=== PATIENT | female | born 1945 | race Caucasian/White ===

== ENCOUNTER 2016-08-16 13:12 | Observation (INO) | payer OTHER ==
[~2016-08-16 13:12] MED LIST: BUPIVACAINE 0.25% 30 ML SDV ONE; THROMBIN (RECOMBINANT) 5,000 UNIT VIAL TP ONE
[2016-08-16] MEDS ORDERED: LIDOCAINE 1% 5 ML SDV ONE (13:34)
[2016-08-16] MEDS ORDERED: CEFAZOLIN 2 GM/DEXTROSE/100 ML BAG IV ONE (13:56)
[2016-08-16] MEDS ORDERED: LIDOCAINE 1% 5 ML SDV ID PRN (14:13)
[2016-08-16] MEDS ORDERED: LR 1,000 ML IV ONE (14:13)
[2016-08-16 14:27] LABS: CALCIUM 10.4 ng/dL (8.5-10.4); CREATININE 0.7 mg/dL (0.6-1.0)
[2016-08-16] MEDS ORDERED: ceFAZolin 2 GM/DEXTROSE 100 ML IV ONE (14:30)
[2016-08-16] MEDS ORDERED: MIDAZOLAM 2 MG/2 ML VIAL ONE (14:44)
[2016-08-16] MEDS ORDERED: fentaNYL 250 MCG/5 ML INJ ONE (14:53)
[2016-08-16] MEDS ORDERED: PROPOFOL 200 MG/20 ML VIAL ONE ×2 (14:53→16:59)
[2016-08-16] MEDS ORDERED: PROPOFOL/EMULSION 500 MG/50 ML BOTTLE IV ONE (16:04)
[2016-08-16] MEDS ORDERED: SKIN ADHESIVE (DERMABOND) 1 EACH TP ONE (16:33)
[2016-08-16] MEDS ORDERED: LIDOCAINE 2% 5 ML SDV ONE (16:33)
[2016-08-16] MEDS ORDERED: ROCURONIUM 50 MG/5 ML VIAL ONE (16:33)
[2016-08-16] MEDS ORDERED: GLYCOPYRROLATE 0.2 MG/1 ML VIAL ONE ×2 (17:01)
[2016-08-16] MEDS ORDERED: NEOSTIGMINE METHYLSULFATE 5 MG/5 ML SYR ONE (17:01)
[2016-08-16] MEDS ORDERED: HYDROCODONE/APAP 5/325 TAB PO PRN (17:25)
[2016-08-16] MEDS ORDERED: ONDANSETRON 4 MG/2 ML VIAL IVP PRN (17:25)
--- NOTE | 2016-08-16 17:40 | POSTOPPROG ---
Post Op Note Date of Operation: 08/16/16 Surgeon: Johnathan Ivan (, FACS) Hot Air Furnace Installer Repairer: Renata Shelton MD Anesthesiologist: Maryanne Ledezma MD Anesthesia: GET(General Endotracheal) (NIMS) Pre-op Diagnosis: hyperparathyroidism Post-op Diagnosis: same Procedure: parathyroidectomy Findings: 1000mg adenoma left superior Inf/Abcess present in the surg proc area at time of surgery?: No
[2016-08-16] MEDS: CALCITRIOL 0.25 MCG CAP PO SCH (18:34)
[2016-08-16] MEDS: CALCIUM CARBONATE 500 MG CHEWABLE TAB PO SCH (20:44)
--- NOTE | 2016-08-17 03:40 | GOP ---
[f rep st] OPERATIVE REPORT DATE OF OPERATION: 08/16/2016 SURGEON: Johnathan Ivan MD, FACS ELECTRONIC SPECIALIST: Renata Shelton MD. PREOPERATIVE DIAGNOSIS: Hyperparathyroidism. POSTOPERATIVE DIAGNOSIS: Hyperparathyroidism. PROCEDURE PERFORMED: Parathyroidectomy. FINDINGS: Left superior pole parathyroid adenoma weighing 1000 mg, submitted for permanent section. Intraoperative PTH levels dropping from a preoperative baseline of 92, to 34 at 10 minutes and 26 at 20 minutes. ESTIMATED BLOOD LOSS: 10 cc. DESCRIPTION OF PROCEDURE: After informed consent was obtained, the patient was brought to the operating room, placed under general anesthesia using a NIMS tube. The neck was prepped and draped in the usual fashion. Before proceeding , a time-out and identification of the patient was performed. 0.25% Marcaine and 1% lidocaine were used to infiltrate the planned incision site. A transverse incision was made between the heads of the sternocleidomastoid muscle, transversely oriented into a natural skin crease. Dissection was carried out through the subcutaneous tissues and platysma muscle. This was incised transversely. Flaps were elevated cephalad deep to the platysma muscle, to the cricothyroid membrane, and inferiorly to the suprasternal notch. The strap muscles were mobilized in the midline and retracted to the left, where the preoperative imaging indicated the likely presence of an adenoma. The thyroid gland was rotated medially with gentle blunt traction, using a small peanut. The inferior parathyroid gland was identified almost immediately, and appeared normal in size. Posterior to the middle thyroid vein was a 2nd parathyroid that appeared to represent an adenoma. The recurrent laryngeal nerve had not been identified at this point, but was likely coursing posteriorly to the parathyroid gland in question. This was slowly and carefully dissected from an anterior approach. The middle thyroid vein was divided with the Harmonic Scalpel. The parathyroid was bluntly dissected and retracted anteriorly away from the ligament of Virk, and likely course of the recurrent laryngeal nerve. As it was teased from the surrounding fibrous fatty tissue of the neck, the remaining blood supply was taken down with the Harmonic Scalpel, and the gland delivered from the field. The remainder of the thyroid gland appeared unremarkable. It was returned to its anatomic position over a small patch of Surgicel. We subsequently waited for intraoperative rapid PTH assays, drawn at approximately 10 and 20 minutes. These ultimately showed an appropriate drop in the PTH level from 92 to 34, and subsequently to 26. Hemostasis appeared secure within the neck. The platysma muscle was defatted anteriorly and approximated with interrupted 3-0 Vicryl suture. Subcutaneous tissues were closed with 3-0 Vicryl suture. The skin was closed with a 4-0 Monocryl suture in a subcuticular fashion. Mastisol and Steri -Strips were applied. Needle, sponge, and instrument count correct. COMPLICATIONS: None. /[id number]/MODL MTDD
[2016-08-17] MEDS: CALCIUM CARBONATE 500 MG CHEWABLE TAB PO SCH (07:58)
[2016-08-17] MEDS: CALCITRIOL 0.25 MCG CAP PO SCH (07:58)
[2016-08-17] MEDS ORDERED: ENOXAPARIN 40 MG/0.4 ML SYR SC SCH (09:00)
--- NOTE | 2016-08-17 09:11 | PDDCSUM ---
Discharge Summary Discharge Summary: DOA: 08/16/16 DOD: 08/17/16 DC Diagnosis: 1. Hyperparathyroidism 2. post op hypoxemia 3. COPD-mild 4. former smoker (quit 3 years ago) Procedures: 06/16 Parathyroidectomy DC meds: Calcitriol .25 mcg po qDay #30 CaCarbonate 500 mg po TID Home O2 2 lpm via MD Hospital course: Patient was admitted for parathyroidectomy. Following surgery she was admitted for observation and had very little post op pain. Her Ca++ levels declined slowly from her baseline and she required supplemental O2 after surgery for sats dropping into the 70s on RA. At time of discharge her lungs were clear without wheezing and her incision was healing without signs of infection or bleeding. Her voice was normal post operatively and she did not require narcotic pain relievers after leaving the PACU. She will follow up in my office next week and with her PCP Dr. Itzel Hayward. Ca++ morning of discharge was 9.9 mg/dl Her pre-op symptoms attributed to PMR resolved almost immediately after surgery. Zelalem Ivan MD, FACS
[2016-08-17 11:42] VITALS: BP 101/67; PULSE 68; RESP 22; TEMP 97.9; O2SAT 96
== END 2016-08-17 13:44 | disposition home or self-care (01) ==
LOC: F3E 13:12
PROVIDERS: ADMIT Surgery; ATTEND Surgery
PROC: 0GBR0ZZ Excision of Parathyroid Gland, Open Approach (ICD-10-PCS; principal; 2016-08-16 14:30)
DX: E21.1 Secondary hyperparathyroidism, not elsewhere classified (principal); D35.1 Benign neoplasm of parathyroid gland; J95.89 Other postprocedural complications and disorders of respiratory system, not elsewhere classified; R09.02 Hypoxemia; J44.9 Chronic obstructive pulmonary disease, unspecified; Z87.891 Personal history of nicotine dependence; M35.3 Polymyalgia rheumatica; M81.0 Age-related osteoporosis without current pathological fracture
CPT/HCPCS: 60500; J0690; J1650; J2250; J2704; J2710; J3010

== ENCOUNTER → 2016-12-03 | Outpatient (CLI) | payer OTHER | LOC: BMCIMAGING 14:50 | PROVIDERS: ATTEND Physician Assistant | DX: M25.562 Pain in left knee (principal); M17.12 Unilateral primary osteoarthritis, left knee ==

== ENCOUNTER 2017-04-27 08:07 | Emergency (ER) | payer OTHER ==
[2017-04-27 08:18] VITALS: BP 143/82; PULSE 73; RESP 18; TEMP 98.2; O2SAT 95
--- NOTE | 2017-04-27 08:28 | EDPHY ---
H & P Time Seen by Provider: 04/27/17 08:17 HPI/ROS: CHIEF COMPLAINT: "I am not feeling well" HISTORY OF PRESENT ILLNESS: Patient is a 7-year-old female with history of polymyalgia rheumatica who presents emergency department with multiple cold type complaints. Patient states that last Friday and Friday she had an episode of nausea and vomiting. Her vomiting has resolved. Since that time she has had malaise. She feels fatigued. She has a mild headache. She denies sore throat. She has no sinus pain. No neck stiffness or photophobia. She denies any chest pain. No shortness of breath. No cough. No current abdominal pain. No dysuria, frequency or hematuria. She has had no rash. Patient states she has had influenza this year. REVIEW OF SYSTEMS: My complete review of systems is negative except as mentioned in the HPI. Past Medical/Surgical History: Includes polymyalgia rheumatica Past surgical history: Parathyroid Social history: Patient quit smoking Smoking Status: Former smoker Physical Exam: Vitals noted. Afebrile GENERAL: Well-appearing, in no acute distress, alert. HEENT: Eyes normal to inspection, normal pharynx, no signs of dehydration. Normal NECK: No thyromegaly, no lymphadenopathy, supple. No meningismus. RESPIRATORY: Clear to auscultation bilaterally, no rales, rhonchi or wheezing. Normal CVS: Regular rate and rhythm, no rubs, murmurs, or gallops. ABDOMEN: Soft, nontender, nondistended, no organomegaly. Benign BACK: Normal to inspection, no CVA tenderness. SKIN: Normal color, no rash, warm, dry. No pallor. EXTREMITIES: No pedal edema, no calf tenderness, no Homans sign or cords, no joint swelling. NEURO/PSYCH: Higher functions: Alert and Oriented x3. Normal speech and cognition. Normal mood and affect. Cranial nerves: Normal as tested. Cerebellar: Normal as tested. Good finger to nose, good [id number], normal gait. Peripheral exam: Normal motor exam. Normal sensation. Normal reflexes. Constitutional: Initial Vital Signs Temperature (C) 36.8 C 04/27/17 08:17 Heart Rate 73 04/27/17 08:17 Respiratory Rate 18 04/27/17 08:17 Blood Pressure 143/82 H 04/27/17 08:17 O2 Sat (%) 95 09/24/17 08:17 O2 Delivery Mode Room Air Allergies/Adverse Reactions: No Known Allergies Allergy (Unverified 04/27/17 08:16) Home Medications: Medication Instructions Recorded Ascorbic Acid [Vitamin C 500 mg 1,000 mg PO DAILY 06/21/16 (*)] Cholecalciferol Vit D3 [Vitamin D3 2,000 units PO DAILY 06/21/16 2000 units tab (OTC)] Ibuprofen [Motrin (*)] 200 mg PO DAILY PRN 06/21/16 Multivitamins [Multivitamin (*)] 1 each PO DAILY 08/02/16 Calcitriol [Calcitriol (*)] 0.25 mcg PO DAILY #30 cap 08/17/16 Calcium Carbonate [Tums 500MG (*)] 500 mg PO TID 30 Days tab.chew 08/17/16 Hydrocodone/APAP 5/325 [[place] 1 - 2 tab PO Q4 #9 tab 04/27/17 5/325 (RX)] Prednisone 04/27/17 Medical Decision Making ED Course/Re-evaluation: In the emergency department I discussed possible etiologies with the patient. At this time she appears well on exam. She has no fever. I do not feel she needs CT imaging of her brain. I doubt subarachnoid hemorrhage, subdural hematoma, epidural hematoma or meningitis. Patient does not appear septic or toxic. Patient has no signs of pharyngitis. Her lung sounds were clear with normal oxygen saturation. I doubt pneumonia. I do not feel she needs x-ray imaging. Patient's abdomen is completely benign. She did have an episode of vomiting last week but none since last Friday. I do not feel she needs imaging or labs. She has no dysuria or frequency. I doubt urinary tract infection. Patient has had her symptoms for a week. I do not feel viral testing is warranted as it will not change her treatment plan. The patient was given warnings prior to leaving. She will return with worsening symptoms. Differential Diagnosis: My differential includes but is not limited to meningitis, subarachnoid hemorrhage, subdural hematoma, epidural hematoma, pneumonia, viral illness, influenza, obstruction, perforation, urinary tract infection, pyelonephritis, bacteremia, sepsis Departure - Departure Disposition: Home, Routine, Self-Care Clinical Impression: Malaise and fatigue Condition: Good Instructions: Weakness (ED), Viral Syndrome (ED) Additional Instructions: Return with increasing pain, weakness, fever or any other concerns. Referrals: Itzel Hayward MD [Primary Care Provider] - 2-3 days without fail Prescriptions: Hydrocodone/APAP 5/325 [[place] 5/325 (RX)] 1 - 2 tab PO Q4 #9 tab
== END 2017-04-27 08:40 | disposition home or self-care (01) ==
LOC: CED 08:07
DX: R53.81 Other malaise (principal); Z87.891 Personal history of nicotine dependence

== ENCOUNTER → 2017-12-26 | Outpatient (CLI) | payer OTHER | LOC: FIMAGING 18:20 | PROVIDERS: ATTEND Psychiatry & Neurology Neurology | DX: M50.321 Other cervical disc degeneration at C4-C5 level (principal); M48.02 Spinal stenosis, cervical region ==

== ENCOUNTER → 2018-03-04 | Outpatient (CLI) | payer OTHER | DX: N20.1 Calculus of ureter (principal) | CPT/HCPCS: 74178; Q9967 ==

== ENCOUNTER → 2018-04-13 | Outpatient (CLI) | payer OTHER | LOC: CIMAGING 09:07 | PROVIDERS: ATTEND Family Medicine | DX: R91.8 Other nonspecific abnormal finding of lung field (principal); J84.9 Interstitial pulmonary disease, unspecified; I70.0 Atherosclerosis of aorta; Z87.891 Personal history of nicotine dependence | CPT/HCPCS: 71250-PO ==

== ENCOUNTER 2018-07-02 11:17 | Observation (INO) | payer OTHER ==
[2018-07-02] MEDS ORDERED: LIDOCAINE 1% 2 ML INJ ID PRN (11:51)
[2018-07-02] MEDS ORDERED: LR 1,000 ML IV ONE (11:51)
[2018-07-02] MEDS ORDERED: LIDOCAINE 2% JELLY 20 ML (UROJECT) ONE (12:10)
[2018-07-02] MEDS ORDERED: IOPAMIDOL (ISOVUE-M 300) 15 ML VIAL ONE ×2 (12:11→19:01)
[2018-07-02] MEDS ORDERED: OPIUM/BELLADONNA ALKALO SUPP PR ONE ×2 (14:33→14:45)
[2018-07-02] MEDS ORDERED: ceFAZolin 3 GM in D5W 100 ML IV ONE (14:59)
--- NOTE | 2018-07-02 15:00 | PDHPUP ---
History & Physical Update H&P update statement: This history and physical update is based on an assessment of the patient which was completed after admission or registration (within 24 hours), but prior to the surgery/procedure. H&P update: H&P reviewed & patient examined, no change in patient's condition since H&P completed
[2018-07-02] MEDS ORDERED: ceFAZolin 2 GM/DEXTROSE 100 ML IV ONE (15:30)
--- NOTE | 2018-07-02 17:06 | PDANEPAE ---
ANE History of Present Illness Mass obstructing right ureter ANE Past Medical History - Cardiovascular History Hx Hypertension: No Hx Arrhythmias: No Hx Chest Pain: No Hx Coronary Artery / Peripheral Vascular Disease: No Hx CHF / Valvular Disease: No Hx Palpitations: No - Pulmonary History Hx COPD: No Hx Asthma/Reactive Airway Disease: No Hx Recent Upper Respiratory Infection: No Hx Oxygen in Use at Home: No Hx Sleep Apnea: No Sleep Apnea Screening Result - Last Documented: Negative - Neurologic History Hx Cerebrovascular Accident: No Hx Seizures: No Hx Dementia: No - Endocrine History Hx Diabetes: No - Renal History Hx Renal Disorders: No Renal History Comment: Hx of hematuria. Dx w/a UTI, starting ABX today, - Liver History Hx Hepatic Disorders: No - Neurological & Psychiatric Hx Hx Neurological and Psychiatric Disorders: No Neurological / Psychiatric History Comment: anxiety - Cancer History Hx Cancer: Yes Cancer History Comment: BASAL CELL CARCINOMA 40 YRS AGO - Congenital Disorder History Hx Congenital Disorders: No - GI History Hx Gastrointestinal Disorders: No - Other Health History Other Health History: wears glasses. recently dx w/RA. polymyalgia. anemia. chronic pain - Chronic Pain History Chronic Pain: Yes (FEET AND KNEES) - Surgical History Prior Surgeries: TUBAL LIGATION 38 YRS AGO ANE Review of Systems Review of Systems: - Exercise capacity METS (RN): 4 METS ANE Patient History - Allergies Allergies/Adverse Reactions: No Known Allergies Allergy (Verified 06/26/18 10:38) - Home Medications Home medications: home medication list seen and reviewed Home Medications: Ascorbic Acid [Vitamin C 500 mg (*)] 06/21/16 [Last Taken 1 Week Ago ~06/25/18] Cholecalciferol Vit D3 [Vitamin D3 2000 units tab (OTC)] 06/21/16 [Last Taken 1 Week Ago ~06/25/18] Multivitamins [Multivitamin (*)] 08/02/16 [Last Taken 1 Week Ago ~06/25/18] Prednisone 04/27/17 [Last Taken 07/02/18 07:00] Iron 06/26/18 [Last Taken 1 Week Ago ~06/25/18] - NPO status NPO Status: no food or drink >8 hours NPO Since - Liquids (Date): 07/02/18 NPO Since - Liquids (Time): 11:00 NPO Since - Solids (Date): 07/02/18 NPO Since - Solids (Time): 04:00 - Anes Hx Anes Hx: no prior problems - Smoking Hx Smoking Status: Former smoker - Family Anes Hx Family Hx Anesthesia Complications: none ANE Labs/Vital Signs - Vital Signs Blood Pressure: 125/82 Heart Rate: 81 Respiratory Rate: 18 O2 Sat (%): 95 Height: 170.18 cm Weight: 89.811 kg ANE Physical Exam - Airway Neck exam: FROM Mallampati Score: Class 2 Mouth exam: normal dental/mouth exam - Pulmonary Pulmonary: no respiratory distress - Cardiovascular Cardiovascular: regular rate and rhythym - ASA Status ASA Status: II ANE Anesthesia Plan Anesthesia Plan: GA w LMA
[2018-07-02] MEDS ORDERED: MIDAZOLAM 2 MG/2 ML VIAL IVP ONE (17:13)
[2018-07-02] MEDS ORDERED: PROPOFOL 200 MG/20 ML VIAL ONE (18:04)
[2018-07-02] MEDS ORDERED: fentaNYL 100 MCG/2 ML INJ ONE ×3 (18:06→20:21)
[2018-07-02] MEDS ORDERED: NALOXONE HCL 0.4 MG/ML INJ IVP PRN ×2 (18:33→19:59)
[2018-07-02] MEDS ORDERED: HYDROmorphONE/DILAUDID 2 MG/ML INJ IVP PRN (18:33)
[2018-07-02] MEDS ORDERED: ONDANSETRON 4 MG/2 ML VIAL IVP PRN ×2 (18:33→21:32)
[2018-07-02] MEDS ORDERED: DEXAMETHASONE 4 MG/ML VIAL ONE (18:40)
[2018-07-02] MEDS ORDERED: ONDANSETRON 4 MG/2 ML VIAL ONE ×2 (19:04→20:46)
--- NOTE | 2018-07-02 19:59 | POSTOPPROG ---
Post Op Note Date of Operation: 07/02/18 Surgeon: Sanjuana Costello Anesthesia: GET(General Endotracheal) Pre-op Diagnosis: Hematuria, right ureteral filling defect on CT, right hydronephrosis Post-op Diagnosis: hematuria, Normal ureter Indication: Hematuria, right ureteral filling defect on CT, right hydronephrosis Procedure: cysto,RURS,laser lithotripsy,stent, RGP, basketextstone Findings: normal right ureter with tortuosity, right renal stonne Inf/Abcess present in the surg proc area at time of surgery?: No EBL: Minimal Complications: none, patient tolerated well Specimen(s): stone fragment
--- NOTE | 2018-07-02 20:01 | POSTANESTH ---
Post Anesthetic Evaluation Cardiovascular Status: Similar to Pre-Op Cond, Tx Hyper/Hypo-tension Respiratory Status: Similar to Pre-op Cond. Level of Consciousness/Mental Status: Alert and Oriented Pain Control: Adequate, Prn Tx Ordered Nausea/Vomiting Control: Adequate, Prn Tx Ordered Complications Possibly Related to Anesthesia: None Noted
[2018-07-02] MEDS: fentaNYL 100 MCG/2 ML INJ IVP PRN ×4 (20:22→21:10)
[2018-07-02] MEDS ORDERED: LABETALOL HCL 20 MG/4 ML INJ IVP ONE ×2 (20:56→20:57)
[2018-07-02] MEDS: LABETALOL HCL 20 MG/4 ML INJ IVP PRN ×2 (20:59→21:12)
[2018-07-02] MEDS ORDERED: ACETAMINOPHEN 325 MG TAB PO PRN (21:32)
[2018-07-02] MEDS ORDERED: ONDANSETRON DISINTEGRATING 4 MG TAB PO PRN (21:32)
[2018-07-02] MEDS ORDERED: HYDROCODONE/APAP 5/325 TAB PO PRN (21:32)
[2018-07-02] MEDS ORDERED: HYDROmorphONE/DILAUDID 1 MG/ML INJ IVP PRN (21:32)
[2018-07-02] MEDS ORDERED: D5W 1/2 NS 1,000 ML IV SCH (21:45)
[2018-07-02 23:42] LABS: PLATELET COUNT 252 10^3/uL (150-400)
[2018-07-03] MEDS ORDERED: ENOXAPARIN 40 MG/0.4 ML SYR SC SCH (09:00)
[2018-07-03] MEDS ORDERED: SENNOSIDES/DOCUSATE SODIUM TAB PO SCH (09:00)
[2018-07-03 11:36] VITALS: BP 134/75
--- NOTE | 2018-07-06 05:26 | GOP ---
DATE OF OPERATION: 07/02/2018 SURGEON: Sanjuana Costello MD ANESTHESIA: General. PREOPERATIVE DIAGNOSIS: Hematuria, right ureteral filling defect on CT, right hydronephrosis, and ri ght kidney stone. POSTOPERATIVE DIAGNOSIS: Hematuria, normal ureter, and right kidney stone. PROCEDURE PERFORMED: Cystoscopy, right ureteroscopy, laser lithotripsy, stent, retrograde pyelogram, basket extraction of stone, intraoperative fluoroscopy. FINDINGS: A normal right ureter with some tortuosity proximally. There was a right renal stone. Th ere was no new lesion or abnormality seen in the ureter, and the bladder was normal as well. SPECIMENS: Stone fragment. ESTIMATED BLOOD LOSS: Minimal. INDICATIONS: The patient presented to my office for hematuria workup. A CT abdomen and pelvis witho ut contrast was obtained and showed a right ureteral filling defect with some fullness of the renal p flako, and this filling defect was very proximal, looked like possible stone versus calcified tumor. It was really uncertain what this was that was in the right proximal ureter. She also had a nonobst ructing stone, and the recommended management was evaluation of this right proximal filling defect wi th a diagnostic ureteroscopy. The rationale, risks, and benefits were discussed, and the benefits ou tweighed the risks. Risks included bleeding, infection, pain, injury to the urethra or the bladder o r the ureter, inability to gain access to the filling defect, need for displacing the stent, and subs equent procedures. She understood this and agreed to proceed. DESCRIPTION OF PROCEDURE: The patient was taken back to the cystoscopy suite, placed on the cystosco py table in supine position. General anesthesia induced without complication. Time-out performed an d core measures satisfied, including placement of a Jg Hugger, SCDs, and administration of Ancef an tibiotics. She was brought to the end of the table, placed in a dorsal lithotomy position, all press ure points padded. Genitalia draped and prepped in the standard surgical fashion with Betadine. A r igid cystoscope easily cannulated the urethral meatus and was advanced atraumatically into the bladde r. Foster cystoscopy performed with a 30-degree lens, and the bladder mucosa was completely normal with no lesions, cellules, trabeculations, or stone fragments. The right and left ureteral orifices were in the correct anatomical position. Attention was focused on the right ureteral orifice, where a 5- Mauritian open-ended catheter was advanced through the cystoscope and to the distal ureteral orifice, an d retrograde pyelogram was performed. The ureter appeared normal with some abnormality in the proxim al ureter. There was no filling defect, but the ureter looked not smooth in that area. Otherwise th e renal pelvis and the kidney looked overall normal without much hydronephrosis, and the calices were sharp. I placed two 0.035 glidewires into the right collecting system with fluoroscopic and cystosc opic guidance. I then removed the cystoscope, placed a 12-Mauritian Rothman catheter to decompress the bl adder, and then advanced a rigid ureteroscope through the urethra and into the bladder and then into the right collecting system. I was able to navigate the ureteroscope all the way into the renal pelv is of the right kidney. During the navigation, I never saw anything abnormal in the right ureter. T here were no lesions, masses, stones, or anything abnormal. The ureter looked healthy, smooth, and w ithout any defects. At this point, I felt it was best to go in and look at the entire right kidney j ust to make sure there was nothing that was missing. Plus she did have a stone on CT scan, and I wou ld be able to remove the stone. I then removed the rigid ureteroscope, leaving the wires in place, a nd again I reexamined the ureter, confirming my findings as described above. Then, I removed the ure teroscope and the Rothman and then advanced an 11/14-Mauritian ureteral access sheath over a working wire and into the right collecting system with fluoroscopic and cystoscopic guidance. The sheath advanced smoothly without any friction, then I advanced a flexible ureteroscope through the sheath and into t he right collecting system into the renal pelvis and all the calices. I did find the stone that was seen on CT scan, and I was able to laser this and remove it in its entirety. There were small little fragments left that were too small to basket, but otherwise I felt that she was cleared of stone. T here were no other stones or abnormalities seen in the calices of the renal pelvis, and again there w as no tissue abnormality. At this point, I felt I cleared her stone. I confirmed there were no mass es or lesions of concern. I still had my safety wire up. I removed the sheath and scope together, a gain examining the wall of the ureter. It looked healthy. I then, with fluoroscopic and cystoscopic guidance, advanced a 6-Mauritian multivariable stent over the working wire with a nice curl in the so l pelvis and a nice curl in the bladder. Her bladder was then emptied, the scope removed, and bellad onna opium placed per rectum and a lidocaine jelly placed per urethra. At this point the procedure w as considered complete. She was awoken from anesthesia and transferred to PACU in good condition. COMPLICATIONS: None. The patient tolerated the procedure well. /[id number]/MODL
== END 2018-07-03 12:20 | disposition home or self-care (01) ==
LOC: FSGY 11:17 → F3E 22:02
PROVIDERS: ADMIT Urology; ATTEND Urology
DX: N13.2 Hydronephrosis with renal and ureteral calculous obstruction (principal); R31.21 Asymptomatic microscopic hematuria; N39.0 Urinary tract infection, site not specified; R39.15 Urgency of urination; Z85.828 Personal history of other malignant neoplasm of skin; Z87.891 Personal history of nicotine dependence
CPT/HCPCS: 52356; 76001; C1758; C1769; C1894; C2625; J0690; J1100; J2250; J2405; J2704; J3010; Q9967; 82365-90; J1650

== ENCOUNTER → 2018-09-16 | Outpatient (CLI) | payer OTHER | LOC: FIMAGING 08:16 | PROVIDERS: ATTEND Urology | DX: Z96.0 Presence of urogenital implants (principal); R31.9 Hematuria, unspecified ==